=== PATIENT | female | born 1955 | race Caucasian/White ===

== ENCOUNTER 2018-12-08 15:32 | Inpatient (IN) | payer OTHER ==
[~2018-12-08] VITALS: Ht 152.4 cm; Wt 97.5 kg
[~2018-12-08 15:32] MED LIST: ? B/P MED; ? CHOLESTEROL MED; ASPIR 8181 MG PO; AZITHROMYCIN 2250 MG PO; CELEXA20 MG PO; CLONAZEPAM 0.50.5 M1 PO; COLACE100 MG PO; DOXEPIN 10 MG C10 M1 PO; FLEXERIL PO; HYDROCODON-ACE1 EAC7 PO; HYDROCODONE-APA1 TA1 PO; HYZAAR 100-12.1 EACH PO; LEXAPRO20 MG; LIPITOR10 MG PO; LOVASTATIN 20 M20 MG PO; NEXIUM40 MG PO; NORCO 5-325 TA1 EACH PO; OMEPRAZOLE40 MG PO; PREDNISONE 10 M10 MG PO; PRILOSEC40 MG; VANTIN PO; VENTOLIN HFA 1818 GM INH; VICODIN 5-3001 EACH PO; VISTARIL 25 MG25 M1 PO; ZANTAC 150MG T150 MG PO; ZESTORETIC 10-1 EACH PO
[2018-12-08 15:36] VITALS: BP 153/89
[2018-12-08 15:52] LABS: ABSOLUTE BASOPHILS 0.1 thou/uL (0.0-0.2); ABSOLUTE EOSINOPHILS 0.1 thou/uL (0.0-0.7); ABSOLUTE LYMPHOCYTES 2.1 thou/uL (0.8-5.3); ABSOLUTE MONOCYTES 0.3 thou/uL (0.0-1.2); ABSOLUTE NEUTROPHILS 3.8 thou/uL (1.6-8.1); BASOPHILS 0.9 %; EOSINOPHILS 1.9 %; HEMATOCRIT 42.3 % (37.0-47.0); HEMOGLOBIN 14.3 gm/dL (12.0-15.0); LYMPHOCYTES 32.4 %; MCH 31.2 pg (26.0-34.0); MCHC 33.7 g/dL (28.0-37.0); MCV 92.7 fL (80.0-100.0); MONOCYTES 5.3 %; NUCLEATED RBCS 0 /100WBC; PLATELET COUNT* 225 thou/uL (150-400); POLYS 59.5 %; RBC 4.56 mil/uL (4.20-5.00); RDW-CV 13.5 % (10.5-14.5); WBC 6.4 thou/uL (4.0-11.0)
[2018-12-08] MEDS ORDERED: AMITRIPTYLINE H25 M2 PO (15:55)
[2018-12-08] MEDS ORDERED: LOVASTATIN 20 M20 MG PO (15:57)
[2018-12-08] MEDS ORDERED: OXYBUTYNIN 5 MG5 M2 PO (15:58)
[2018-12-08] MEDS ORDERED: CELEXA20 MG PO (15:59)
[2018-12-08] MEDS ORDERED: DICLOFENAC SODI25 MG PO (15:59)
[2018-12-08 16:00] LABS: CALCIUM 8.9 mg/dL (8.5-10.1); INR 0.9; POTASSIUM 3.8 mmol/L (3.5-5.1); PROTIME 9.4 Seconds (9.20-11.50)
[2018-12-08] MEDS ORDERED: VIIBRYD20 MG PO (16:00)
[2018-12-08 16:05] LABS: ALBUMIN 3.6 g/dL (3.4-5.0); TOTAL BILIRUBIN 0.5 mg/dL (<0.1-1.0); TOTAL PROTEIN 7.1 g/dL (6.4-8.2)
[2018-12-08 17:10] LABS: URINE BILIRUBIN NEGATIVE (Negative); URINE BLOOD NEGATIVE (Negative); URINE CLARITY CLEAR; URINE COLOR YELLOW; URINE GLUCOSE-RANDOM NEGATIVE (Negative); URINE KETONES NEGATIVE (Negative); URINE NITRITE-REFLEX NEGATIVE (Negative); URINE PROTEIN NEGATIVE (Negative); URINE SPECIFIC GRAVITY <= 1.005 (1.005-1.030); URINE UROBILINOGEN 0.2 E.U./dl (0.2-1.0)
[2018-12-08 17:11] LABS: URINE LEUKOCYTES-REFLEX 3+ (Negative)
[2018-12-08 17:17] LABS: MUCUS None Seen strn/LPF (None Seen); SQUAMOUS 4-10 Moderate /LPF (0-3)
[2018-12-08 17:18] LABS: BACTERIA-REFLEX 1-9 Few /HPF (None Seen); CASTS None Seen /LPF (None Seen); CRYSTALS None Seen /LPF (None Seen); URINE RBC 0-2 Rare /HPF (0-2); URINE WBC-REFLEX >25 Many /HPF (0-5)
[2018-12-08 19:45] VITALS: BP 126/80
[2018-12-08 19:50] VITALS: BP 160/76
[2018-12-08] MEDS ORDERED: NICOTINE TRANSD21 M1 TRANSDERM (20:57)
[2018-12-09] VITALS: BP 98/60
[2018-12-09 04:00] VITALS: BP 127/76
[2018-12-09 04:29] LABS: CHOLESTEROL 203 mg/dL (<200); HDL CHOLESTEROL 50 mg/dL (>40); LDL CHOLESTEROL 134 mg/dL (<100); SERUM ASSESSMENT Clear; TC:HDL 4.1 Ratio (Not establshd); TRIGLYCERIDE 97 mg/dL (<150); VLDL 19 mg/dL (<40)
[2018-12-09 08:44] VITALS: BP 123/67
[2018-12-09 11:30] VITALS: BP 95/66
--- NOTE | 2018-12-09 13:31 | 2DMMODE ---
[place] [address] 2 D/M-MODE ECHOCARDIOGRAM Name: CHRISTELLE MARTE Room: [address] IN [facility]#: [id number] Admission: 12/08/18 Attend Phys: Brittny Damon, Discharge: Date of : 55 Date of Service: 12/09/18 1331 Report #: [id number] THIS REPORT FOR: //name// APPROVED REPORT Study performed: 12/09/2018 10:43:59 EXAM: Comprehensive 2D, Doppler, and color-flow Echocardiogram Patient Location: In-Patient Room #: 222 Status: routine BSA: 1.91 HR: 60 bpm BP: 123/67 mmHg Rhythm: NSR Other Information Study Quality: Fair Indications CVA/TIA Echo Enhancing Agent Indication: Rule out Shunt Agent(s) / Amount(s) Used: Agitated Saline 10 cc Comments: Difficult bubble study, but patient had AGUSTIN in 2015 that demonstrated no PFO 2D Dimensions IVSd: 11.32 (7-11mm) LVOT Diam: 18.65 (18-24mm) LVDd: 40.88 mm PWd: 10.84 (7-11mm) Ascending Ao: 29.66 (22-36mm) LVDs: 25.47 (25-40mm) Aortic Root: 33.00 mm Aortic Valve AoV Peak Reynaldo.: 1.37 m/s AO Peak Gr.: 7.50 mmHg LVOT Max P.90 mmHg AO Mean Gr.: 4.22 mmHg LVOT Mean P.88 mmHg LVOT Max V: 0.99 m/s AO V2 VTI: 25.52 cm LVOT Mean V: 0.63 m/s YEVGENIY (VTI): 2.09 cm2 LVOT V1 VTI: 19.54 cm Mitral Valve E/A Ratio: 0.81 [place] [address] 2 D/M-MODE ECHOCARDIOGRAM Name: CHRISTELLE MARTE Room: [address] IN [facility].#: [id number] Admission: 12/08/18 Attend Phys: Brittny Damon, Discharge: Date of : 55 Date of Service: 12/09/18 1331 Report #: [id number] MV Decel. Time: 247.39 ms MV E Max Reynaldo.: 0.87 m/s MV PHT: 71.74 ms MVA (PHT): 3.07 cm2 TDI E/Lateral E': 9.67 E/Medial E': 8.70 Medial E' Reynaldo.: 0.10 m/s Lateral E' Reynaldo.: 0.09 m/s Pulmonary Valve PV Peak Reynaldo.: 1.21 m/s PV Peak Gr.: 5.83 mmHg Left Ventricle The left ventricle is normal size. There is normal LV segmental wall motion. There is normal left ventricular wall thickness. Left ventricular systolic function is normal. The left ventricular ejection fraction is within the normal range. LVEF is 55-60%. Grade I - abnormal relaxation pattern. Right Ventricle The right ventricle is normal size. The right ventricular systolic function is normal. Atria The left atrium size is normal. Bubble study showed no evidence of right to left shunt although the images were technically difficult The right atrium size is normal. Aortic Valve The aortic valve is normal in structure. No aortic regurgitation is present. There is no aortic valvular stenosis. Mitral Valve The mitral valve is normal in structure. There is no mitral valve regurgitation noted. No evidence of mitral valve stenosis. Tricuspid Valve The tricuspid valve is normal in structure. Unable to assess PA pressure. Trace tricuspid regurgitation. Pulmonic Valve Pulmonic valve is not well visualized. There is no pulmonic valvular regurgitation. [place] [address] 2 D/M-MODE ECHOCARDIOGRAM Name: CHRISTELLE MARTE Room: [address] M.R.#: [id number] Admission: 12/08/18 Attend Phys: Brittny Damon, Discharge: Date of : 55 Date of Service: 12/09/18 1331 Report #: [id number] The aortic root is normal in size. IVC is normal in size and collapses >50% with inspiration. Pericardium There is no pericardial effusion. <Conclusion> LVEF is 55-60%. Bubble study showed no evidence of right to left shunt although the images were technically difficult <ELECTRONICALLY SIGNED> By: Pranav Zapien MD, [facility] 12/09/18 1331 1331 1331 Pranav Zapien MD, FAC /INF
[2018-12-09 16:37] VITALS: BP 103/56
[2018-12-09 19:55] VITALS: BP 113/64
[2018-12-10] VITALS (7 sets, daily range): BP systolic 96–112; BP diastolic 46–75
[2018-12-10 02:10] LABS: GLYCOHEMOGLOBIN (HGB A1C) 5.8 % (4.8-5.6)
[2018-12-11] VITALS: BP 90/48
[2018-12-11 04:00] VITALS: BP 97/54
[2018-12-11 07:54] VITALS: BP 105/64
[2018-12-11 11:32] VITALS: BP 95/55
[2018-12-11 15:53] VITALS: BP 118/71
[2018-12-11 20:15] VITALS: BP 113/58
[2018-12-12] VITALS (7 sets, daily range): BP systolic 95–143; BP diastolic 55–91
[2018-12-13] VITALS (14 sets, daily range): BP systolic 100–166; BP diastolic 50–94
--- NOTE | 2018-12-13 11:22 | TEE ---
[place] [address] TRANSESOPHAGEAL ECHOCARDIOGRAM Name: SUSANAMYCHRISTELLE Room: [address] IN [facility]#: [id number] Admission: 12/08/18 Attend Phys: Brittny Damon, Discharge: Date of : 55 Date of Service: 12/13/18 1122 Report #: [id number] THIS REPORT FOR: //name// APPROVED REPORT Study performed: 12/13/2018 10:08:07 EXAM: Transesophageal Echocardiogram Patient Location: In-Patient Room #: 222 Status: routine BSA: 1.92 HR: 124 bpm BP: 151/94 mmHg Rhythm: NSR Other Information Study Quality: Adequate Indications CVA/TIA Echo Enhancing Agent Indication: Rule out Shunt Agent(s) / Amount(s) Used: Agitated Saline 10 cc Procedure After obtaining informed consent, patient underwent transesophageal echo in the [employer]. Type of Sedation : Conscious Sedation Sedation was administered by Christal Godfrey RN. Sedation start time: 1010 Case end Time: 1024 Sedation was achieved intravenously with: Versed (3) Fentanyl (50) Transesophageal probe was inserted and advanced into esophagus without difficulty by Carlton Siu MD, FACC. Echo enhancement indication: R/O Septal defect. Echo enhancement agent administered: Agitated Saline The AGUSTIN was performed without complications. Throughout the procedure, the blood pressure, pulse oximetry, cardiac rhythm, and rate were monitored. The patient tolerated the procedure without adverse effects. Recovery from conscious sedation was uneventful [place] [address] TRANSESOPHAGEAL ECHOCARDIOGRAM Name: CHRISTELLE MARTE Room: [address]#: [id number] Admission: 12/08/18 Attend Phys: Brittny Damon, Discharge: Date of : 55 Date of Service: 12/13/18 1122 Report #: [id number] Left Ventricle The left ventricle is normal size. There is normal LV segmental wall motion. There is normal left ventricular wall thickness. Left ventricular systolic function is normal. LVEF is 65-70%. Right Ventricle The right ventricle is normal size. The right ventricular systolic function is normal. Atria The left atrium size is normal. No thrombus is visualized in the left atrium or appendage. Interatrial septum is intact without evidence of ASD or PFO. The right atrium size is normal. Aortic Valve The aortic valve is normal in structure. No aortic regurgitation is present. There is no aortic valvular stenosis. Mitral Valve The mitral valve is normal in structure. Trace mitral regurgitation. No evidence of mitral valve stenosis. Tricuspid Valve The tricuspid valve is normal in structure. There is no tricuspid valve regurgitation noted. Pulmonic Valve The pulmonary valve is normal in structure. There is no pulmonic valvular regurgitation. Great Vessels The aortic root is normal in size. Pericardium There is no pericardial effusion. <Conclusion> The left ventricle is normal size. There is normal left ventricular wall thickness. Left ventricular systolic function is normal. LVEF is 65-70%. There is normal LV segmental wall motion. Interatrial septum is intact without evidence of ASD or PFO. The left [place] [address] TRANSESOPHAGEAL ECHOCARDIOGRAM Name: CHRISTELLE MARTE Room: [address] M.R.#: [id number] Admission: 12/08/18 Attend Phys: Brittny Damon, Discharge: Date of : 55 Date of Service: 12/13/181121 Report #: [id number] No thrombus is visualized in the left atrium or appendage. Trace mitral regurgitation. <ELECTRONICALLY SIGNED> By: Carlton Siu MD, FACC 12/13/181121 21 21 Carlton Siu MD, FACC /INF
[2018-12-13] MEDS ORDERED: NEURONTIN 400400 M1 PO (11:32)
[2018-12-13] MEDS ORDERED: ASPIRIN325 PO (11:45)
--- NOTE | 2018-12-14 08:40 | EEG ---
[address] [address] EEG STUDY REPORT Name: SUJEY MARTEKim Ortega Room: [address] IN M.R.#: [id number] Admission: 12/08/18 Attend Phys: Brittny Damon MD Discharge: 12/13/18 Date of : 55 Report #: [id number] THIS REPORT FOR: //name// CC: [facility] physician/PCP Brittny Damon DATE OF SERVICE: 12/12/2018 This patient is being evaluated for a question of seizure. This patient's EEG was done by placing the electrode by standard 10-20 system of electrode placement. Both referential and sequential montages were used for recording. Background activity in this patient's EEG is about 9 Hz and 30 microvolts. It is intermixed with some slowing on both sides. The patient became drowsy and that is associated with bilateral slowing and vertex sharp waves. Photic stimulation was unremarkable. Throughout the record, no active epileptiform activity was noticed. IMPRESSION: This patient's EEG is intermixed with some theta range slowing on both sides. That is a nonspecific abnormality, which can occur with drowsiness, effect of psychotropic medication, dementia, etc. No active epileptiform activity was noticed. Thank you very much for this referral. <ELECTRONICALLY SIGNED> By: Akil Hackett MD 12/14/18 0840 1611 1637Akil aHckett MD /leodan
== END 2018-12-13 12:56 | disposition home or self-care (01) | DRG 69 ==
LOC: M.ERS 15:32 → M.2W 18:42 → M.TBA-ER 18:42 → M.2W 19:50
PROVIDERS: Personal Emergency Response Attendant; ADMIT Internal Medicine
PROC: B24BZZ4 Ultrasonography of Heart with Aorta, Transesophageal (ICD-10-PCS; principal; 2018-12-13)
DX: G45.9 Transient cerebral ischemic attack, unspecified (principal); N39.0 Urinary tract infection, site not specified; K21.9 Gastro-esophageal reflux disease without esophagitis; I10 Essential (primary) hypertension; F41.9 Anxiety disorder, unspecified; G43.909 Migraine, unspecified, not intractable, without status migrainosus; R56.9 Unspecified convulsions; F32.9 Major depressive disorder, single episode, unspecified; G89.29 Other chronic pain; M54.9 Dorsalgia, unspecified; F17.210 Nicotine dependence, cigarettes, uncomplicated; J44.9 Chronic obstructive pulmonary disease, unspecified; E78.00 Pure hypercholesterolemia, unspecified; Z86.73 Personal history of transient ischemic attack (TIA), and cerebral infarction without residual deficits; Z90.710 Acquired absence of both cervix and uterus; Z90.49 Acquired absence of other specified parts of digestive tract; Z79.82 Long term (current) use of aspirin; Z79.899 Other long term (current) drug therapy

== ENCOUNTER 2021-03-17 10:24 | Emergency (ER) | payer OTHER ==
[~2021-03-17] VITALS: Ht 152.4 cm; Wt 77.1 kg
[~2021-03-17 10:24] MED LIST changes: +AMITRIPTYLINE H25 M2 PO; +ASPIRIN325 PO; +DICLOFENAC SODI25 MG PO; +NEURONTIN 400400 M1 PO; +NICOTINE TRANSD21 M1 TRANSDERM; +OXYBUTYNIN 5 MG5 M2 PO; +VIIBRYD20 MG PO
[2021-03-17] MEDS ORDERED: DRIZALMA SPRINK60 MG PO (10:38)
[2021-03-17] MEDS ORDERED: NEXIUM 40 MG CA40 M1 PO (10:38)
[2021-03-17] MEDS ORDERED: SIMVASTATIN80 MG PO (10:38)
[2021-03-17] MEDS ORDERED: LISINOPRIL-HCT1 EACH PO (10:38)
[2021-03-17] MEDS ORDERED: BUPROPION XL300 MG PO (10:39)
[2021-03-17] MEDS ORDERED: ASA81BEC PO (10:39)
[2021-03-17] MEDS ORDERED: HYDROXYZINE HCL25 M2 PO (10:39)
[2021-03-17] MEDS ORDERED: METAMUCIL0.4 GM PO (10:39)
[2021-03-17 11:17] LABS: ABSOLUTE EOSINOPHILS 0.1 thou/uL (0.0-0.7); ABSOLUTE LYMPHOCYTES 1.2 thou/uL (0.8-5.3); ABSOLUTE MONOCYTES 0.3 thou/uL (0.0-1.2); ABSOLUTE NEUTROPHILS 2.7 thou/uL (1.6-8.1); BASOPHILS 0.9 %; EOSINOPHILS 1.4 %; HEMATOCRIT 40.3 % (37.0-47.0); HEMOGLOBIN 13.6 gm/dL (12.0-15.0); LYMPHOCYTES 27.9 %; MCH 31.2 pg (26.0-34.0); MCHC 33.8 g/dL (28.0-37.0); MCV 92.1 fL (80.0-100.0); MONOCYTES 6.6 %; MPV 7.8 fl. (7.2-11.1); NUCLEATED RBCS 0 /100WBC; PLATELET COUNT* 224 thou/uL (150-400); POLYS 63.2 %; RBC 4.38 mil/uL (4.20-5.00); RDW-CV 13.7 % (10.5-14.5); WBC 4.3 thou/uL (4.0-11.0)
[2021-03-17 11:28] LABS: CALCIUM 8.7 mg/dL (8.5-10.1); CREATININE 0.9 mg/dL (0.6-1.3); POTASSIUM 4.4 mmol/L (3.5-5.1)
[2021-03-17 11:32] LABS: ALBUMIN 3.4 g/dL (3.4-5.0); TOTAL BILIRUBIN 0.6 mg/dL (<0.1-1.0); TOTAL PROTEIN 6.7 g/dL (6.4-8.2)
[2021-03-17 12:15] VITALS: BP 134/72
--- NOTE | 2021-03-17 12:26 | EKG ---
[place] [address] ELECTROCARDIOGRAM REPORT Name: CHRISTELLE MARTE Room: [facility]#: [id number] Admission: 03/17/21 Attend Phys: Discharge: 03/17/21 Date of : 55 Date of Service: 03/17/21 1052 Report #: [id number] THIS REPORT FOR: //name// [facility] ED Test Date: 2021-03-17 Test Time: 10:52:01 Pat Name: CHRISTELLE MARTE Department: Room: Gender: F Cloud Consultant: : 1955 Requested By: Clifford Aviles Order Number: [id number] MD: Pranav Zapien Measurements Intervals [place] Rate: 78 P: 31 CO: 140 QRS: 3 QRSD: 80 T: 33 QT: 360 QTc: 411 Interpretive Statements Sinus rhythm Compared to ECG 10/08/2015 11:18:52 T-wave abnormality no longer present Electronically Signed On 03-17-2021 12:26:39 TERRA COTTA SETTER by Pranav Zapien [email or web address] <ELECTRONICALLY SIGNED> By: Pranav Zapien MD, [facility] 03/17/21 1226 1052 1052 Praanv Zapien MD, [facility] /EPI
== END 2021-03-17 12:16 | disposition home or self-care (01) ==
LOC: M.ERS 10:24
PROVIDERS: Family Medicine
DX: G45.9 Transient cerebral ischemic attack, unspecified (principal); K21.9 Gastro-esophageal reflux disease without esophagitis; J45.909 Unspecified asthma, uncomplicated; I10 Essential (primary) hypertension; J44.9 Chronic obstructive pulmonary disease, unspecified; E78.00 Pure hypercholesterolemia, unspecified; Z90.49 Acquired absence of other specified parts of digestive tract; Z90.710 Acquired absence of both cervix and uterus; Z90.89 Acquired absence of other organs; Z79.899 Other long term (current) drug therapy

== ENCOUNTER → 2021-04-02 | Outpatient (CLI) | payer OTHER ==
[~2021-04-02] MED LIST changes: +ASA81BEC PO; +BUPROPION XL300 MG PO; +DRIZALMA SPRINK60 MG PO; +HYDROXYZINE HCL25 M2 PO; +LISINOPRIL-HCT1 EACH PO; +METAMUCIL0.4 GM PO; +NEXIUM 40 MG CA40 M1 PO; +SIMVASTATIN80 MG PO
== END ==
LOC: M.RAD 08:04
DX: M47.812 Spondylosis without myelopathy or radiculopathy, cervical region (principal); M50.322 Other cervical disc degeneration at C5-C6 level; M25.511 Pain in right shoulder; M25.512 Pain in left shoulder

== ENCOUNTER 2021-05-06 20:07 | Emergency (ER) | payer OTHER ==
[~2021-05-06] VITALS: Ht 152.4 cm; Wt 77.6 kg
[2021-05-06 20:51] LABS: INFLUENZA A ANTIGEN Negative (Negative); INFLUENZA B ANTIGEN Negative (Negative)
[2021-05-06] MEDS ORDERED: PREDNISONE50 MG PO (23:38)
[2021-05-06] MEDS ORDERED: PHENERGAN 25 MG25 M1 PO (23:38)
[2021-05-07 00:07] VITALS: BP 114/66
--- NOTE | 2021-05-07 10:55 | EKG ---
[place] [address] ELECTROCARDIOGRAM REPORT Name: SUSANAMYCHRISTELLE Room: [facility]#: [id number] Admission: 05/06/21 Attend Phys: Discharge: 05/07/21 Date of : 55 Date of Service: 05/06/212224 Report #: [id number] THIS REPORT FOR: //name// [facility] ED Test Date: 2021-05-06 Test Time: 22:25:32 Pat Name: CHRISTELLE MARTE Department: Room: Gender: F Shear Operator Automatic: [place] : 1955 Requested By: Ansley Reynolds Order Number: [id number] MD: Ronni Mera Measurements Intervals [place] Rate: 83 P: 58 NM: 144 QRS: 18 QRSD: 91 T: 41 QT: 350 QTc: 412 Interpretive Statements Sinus rhythm Atrial premature complex Compared to ECG 03/17/2021 10:52:01 Atrial premature complex(es) now present Electronically Signed On 05-07-2021 10:55:20 CHIEF CREDIT OFFICER by Ronni Mera [email or web address] <ELECTRONICALLY SIGNED> By: Ronni Mera MD, FAC 05/07/21 1055 24 Ronni Mera MD, [facility] /EPI
== END 2021-05-07 00:07 | disposition home or self-care (01) ==
LOC: M.ERS 20:07
PROVIDERS: Emergency Medicine
DX: J06.9 Acute upper respiratory infection, unspecified (principal); Z20.822 Contact with and (suspected) exposure to COVID-19; K21.9 Gastro-esophageal reflux disease without esophagitis; J44.9 Chronic obstructive pulmonary disease, unspecified; I10 Essential (primary) hypertension; E78.00 Pure hypercholesterolemia, unspecified; Z90.89 Acquired absence of other organs; Z90.49 Acquired absence of other specified parts of digestive tract; Z90.710 Acquired absence of both cervix and uterus; Z79.899 Other long term (current) drug therapy